=== PATIENT | female | born 2000 | race Caucasian/White ===

== ENCOUNTER 2018-04-11 21:35 | Emergency (ER) | payer OTHER ==
[2018-04-12 00:30] LABS: ADD UMIC YES; UR ASCORBIC ACID NEGATIVE (NEGATIVE); UR BACTERIA FEW /HPF (NONE SEEN); UR BILIRUBIN (Dip) NEGATIVE (NEGATIVE); UR BLOOD (Dip) 2+ mg/dL (NEGATIVE); UR CLARITY SLIGHTLY CLOUDY (CLEAR); UR COLOR YELLOW (YELLOW); UR GLUCOSE (Dip) NEGATIVE (NEGATIVE); UR KETONES (Dip) NEGATIVE (NEGATIVE); UR LEUKOCYTE ESTERASE (Dip) 2+ Leu/ul (NEGATIVE); UR NITRITE (Dip) NEGATIVE (NEGATIVE); UR RBC 34 /HPF (0-5); UR SPECIFIC GRAVITY (Dip) 1.017 (1.003-1.030); UR SQUAMOUS EPITHELIAL CELL FEW /HPF (FEW); UR TOTAL PROTEIN (Dip) 2+ mg/dl (NEGATIVE); UR UROBILINOGEN (Dip) 1+ mg/dL (NEGATIVE); UR WBC > 182 /HPF (0-5)
[2018-04-12] MEDS: IBUPROFEN 600 MG TAB PO (00:32)
[2018-04-12] MEDS: SOD CHLORIDE 0.9% 1,000 ML IV (00:32)
[2018-04-12 00:49] LABS: ADD MAN DIFF? NO
[2018-04-12 00:50] LABS: BASOPHILS % 0.2 % (0.0-2.0); EOSINOPHILS % 0.1 % (0.0-7.0); HEMATOCRIT 39.9 % (37.0-47.0); HEMOGLOBIN 12.9 g/dl (12.0-16.0); LYMPHOCYTES # 2.5 10^3/ul (0.8-2.9); LYMPHOCYTES % 14.8 % (18.0-55.0); MEAN CORPUSCULAR HEMOGLOBIN 26.6 pg (29.0-33.0); MEAN CORPUSCULAR HGB CONC 32.3 g/dl (32.0-37.0); MEAN CORPUSCULAR VOLUME 82.3 fl (72.0-104.0); MEAN PLATELET VOLUME 9.3 fl (7.4-10.4); MONOCYTE # 1.4 10^3/ul (0.3-0.9); MONOCYTES % 8.5 % (0.0-13.0); NEUTROPHIL # 12.8 10^3/ul (1.6-7.5); PLATELET COUNT 366 10^3/UL (140-415); RED BLOOD COUNT 4.85 10^6/ul (4.20-5.40); RED CELL DISTRIBUTION WIDTH 13.9 % (11.5-14.5)
[2018-04-12 00:50] LABS: WHITE BLOOD COUNT 16.8 10^3/ul (4.8-10.8)
[2018-04-12 01:07] LABS: ALANINE AMINOTRANSFERASE 42 IU/L (13-69); ALBUMIN 4.6 g/dl (3.3-4.9); ALBUMIN/GLOBULIN RATIO 1.27; ALKALINE PHOSPHATASE 79 IU/L (42-121); ANION GAP 17 (5-13); ASPARTATE AMINO TRANSFERASE 49 IU/L (15-46); BILIRUBIN,INDIRECT 0.2 mg/dl (0-1.1); BILIRUBIN,TOTAL 0.2 mg/dl (0.2-1.3); BLOOD UREA NITROGEN 12 mg/dl (7-20); CALCIUM 9.5 mg/dl (8.4-10.2); CARBON DIOXIDE 20 mmol/L (21-31); CHLORIDE 102 mmol/L (97-110); Estimated GFR > 60 mL/min (>60); GLUCOSE 135 mg/dl (70-220); LIPASE 98 U/L (23-300); POTASSIUM 4.2 mmol/L (3.5-5.1); SODIUM 139 mmol/L (135-144); TOTAL PROTEIN 8.2 g/dl (6.1-8.1)
[2018-04-12 01:09] LABS: LACTIC ACID 1.8 mmol/L (0.5-2.0)
[2018-04-12] MEDS: CEFTRIAXONE 1 GM/50 ML (PMX) 50 ML IVPB (03:24)
== END 2018-04-12 04:07 | disposition home or self-care (01) ==
LOC: FTE 21:35
DX: N12 Tubulo-interstitial nephritis, not specified as acute or chronic (principal); R40.2412 Glasgow coma scale score 13-15, at arrival to emergency department
CPT/HCPCS: 36415; 74176; 76705; 80053; 81001; 83605; 83690; 84703; 85025; 96361; 96365; 99285-25

== ENCOUNTER 2019-01-01 02:23 | Emergency (ER) | payer OTHER, BC ==
[2019-01-01] MEDS ORDERED: DIPHENHYDRAMINE 50 MG INJ IV (02:53)
[2019-01-01] MEDS: SOD CHLORIDE 0.9% 1,000 ML IV (03:19)
[2019-01-01] MEDS: DIPHENHYDRAMINE 50 MG CAP PO (03:19)
[2019-01-01] MEDS: FAMOTIDINE 20 MG INJ IV (03:19)
[2019-01-01] MEDS: DEXAMETHASONE 10 MG/ML 1 ML INJ IV (03:19)
== END 2019-01-01 04:28 | disposition home or self-care (01) ==
LOC: E/R 02:23
DX: L29.9 Pruritus, unspecified (principal)
CPT/HCPCS: 96374; 96375; 99284-25